=== PATIENT | female | born 1965 | race African-American/Black ===

== ENCOUNTER → 2016-09-06 | Outpatient (CLI) | payer OTHER | LOC: MC.RAD 12:54 | DX: Z12.31 Encounter for screening mammogram for malignant neoplasm of breast (principal) ==

== ENCOUNTER 2017-10-28 07:28 | Day surgery (SDC) | payer OTHER ==
[~2017-10-28] VITALS: Ht 162.6 cm; Wt 93.7 kg
[2017-10-28] MEDS ORDERED: D3-5050000 IU PO (07:50)
[2017-10-28] MEDS ORDERED: PRENATAL1 TA7 PO (07:50)
[2017-10-28 08:01] VITALS: BP 116/75; PULSE 69; TEMP 98.2
[2017-10-28 09:18] VITALS: BP 112/72; PULSE 60; TEMP 97.8
[2017-10-28 09:30] VITALS: BP 95/52; PULSE 68
[2017-10-28 09:45] VITALS: BP 109/72; PULSE 61
== END 2017-10-28 10:00 | disposition home or self-care (01) ==
LOC: SDCO 07:28
DX: K21.0 Gastro-esophageal reflux disease with esophagitis (principal)
CPT/HCPCS: OP; J2250; J3010; J7030